=== PATIENT | female | born 1975 | race African-American/Black ===

== ENCOUNTER 2016-06-22 09:06 | Day surgery (SDC) | payer BC ==
[2016-06-22] MEDS ORDERED: D5 LR 1000 ML 1,000 ML IV ONE (09:18)
[2016-06-22] MEDS ORDERED: DIPRIVAN VIAL 20 ML ONE ×2 (10:39→10:49)
[2016-06-22 14:12] VITALS: BP 130/80
== END 2016-06-22 11:20 | disposition home or self-care (01) ==
LOC: SURG1 09:06
PROVIDERS: ATTEND Internal Medicine Gastroenterology
PROC: 0DJD8ZZ Inspection of Lower Intestinal Tract, Via Natural or Artificial Opening Endoscopic (ICD-10-PCS; principal; 2016-06-22 11:45)
DX: D50.8 Other iron deficiency anemias (principal); K64.8 Other hemorrhoids; Z98.890 Other specified postprocedural states
CPT/HCPCS: A4217; J3490; J7120